=== PATIENT | female | born 1975 ===

== ENCOUNTER 2017-05-02 17:59 | Emergency (ER) | payer MEDICAID ==
[2017-05-02 18:09] VITALS: TEMP 98.5
--- NOTE | 2017-05-02 18:42 | C.PDOC ---
History Of Present Illness 42 year old female presents to the ED with complaints of an headache that she describes as "electricity on the top of my head and numbness" since 11am today. Patient states she experienced similar symptoms one week ago but "was not as intense." She also notes a chest pressure that began around 2pm today with radiating left arm cramping and dizziness. Patient used ibuprofen with relief and denies past medical history, migraines, drug use, alcohol, or smoking. Time Seen by Provider: 05/02/17 18:27 Chief Complaint (Nursing): Headache History Per: Patient History/Exam Limitations: no limitations Onset/Duration Of Symptoms: Hrs Current Symptoms Are (Timing): Better (pain was a 10/10 prior to arrival) Pain Scale Rating Of: 8 Quality: Other ("electricity and numbness" on the top of the head ) Preceeding Symptoms: None Associated Symptoms: denies: Photophobia, Blurred Vision, Nausea, Vomiting Recent travel outside of the [place]: No Past Medical History Reviewed: Historical Data, Nursing Documentation, Vital Signs Vital Signs: Last Vital Signs Temp 98.5 F 05/02/17 18:06 Pulse 80 05/02/17 19:23 Resp 14 05/02/17 19:23 BP 120/80 05/02/17 19:23 Pulse Ox 99 05/02/17 19:23 Surgical History: Cholecystectomy Family History: States: Unknown Family Hx - Social History Hx Alcohol Use: No Hx Substance Use: No - Immunization History Hx Tetanus Toxoid Vaccination: No Hx Influenza Vaccination: No Hx Pneumococcal Vaccination: No Review Of Systems Constitutional: Negative for: Fever, Chills Cardiovascular: Positive for: Other (chest pressure ). Negative for: Chest Pain , Palpitations Respiratory: Negative for: Cough, Shortness of Breath Gastrointestinal: Negative for: Nausea, Vomiting, Abdominal Pain, Diarrhea Musculoskeletal: Positive for: Arm Pain (left arm cramping sensation radiation from chest pressure ) Neurological: Positive for: Headache, Dizziness. Negative for: Weakness, Numbness Physical Exam - Physical Exam Appears: Non-toxic, No Acute Distress Skin: Warm, Dry Head: Other (reproducable scalp pain ) Eye(s): bilateral: Normal Inspection, PERRL, EOMI Oral Mucosa: Moist Neck: Paracervical Tenderness Chest: Symmetrical, No Deformity Cardiovascular: Rhythm Regular Respiratory: Normal Breath Sounds, No Rales, No Rhonchi, No Wheezing Gastrointestinal/Abdominal: Soft, No Tenderness, No Distention, No Guarding, No Rebound Extremity: Normal ROM, No Tenderness Neurological/Psych: Oriented x3, Normal Speech, Normal Cognition, Normal Cranial Nerves, Normal Motor, Normal Sensation ED Course And Treatment O2 Sat by Pulse Oximetry: 98 (room air ) Medical Decision Making Medical Decision Making: headache with scalp and cervical muscle tenderness, no cereral symptoms. NSR 62 without acute changes normal exam. Disposition Doctor Will See Patient In The: Office Counseled Patient/Family Regarding: Studies Performed, Diagnosis - Disposition [facility]Outside[facility] Disposition: HOME/ ROUTINE Disposition Time: 19:12 Condition: GOOD Additional Instructions: sigue con Ibuprofeno 600 mg cada 6 horas julio necessario Pepcid 20 mg en la noche para prevenir irritacion' del estomago debido al Ibuprofeno. Sigue en la [facility] julio necessario. Instructions: Acute Headache (ED) Print Language: BULGARIAN - Clinical Impression Clinical Impression: Headache - Scribe Statement The provider has reviewed the documentation as recorded by the Scribe Zahra Naik All medical record entries made by the Scribe were at my direction and personally dictated by me. I have reviewed the chart and agree that the record accurately reflects my personal performance of the history, physical exam, medical decision making, and the department course for this patient. I have also personally directed, reviewed, and agree with the discharge instructions and disposition.
[2017-05-02 19:24] VITALS: BP 120/80; PULSE 80; RESP 14
[2017-05-02 19:35] VITALS: O2SAT 98
--- NOTE | 2017-05-05 12:24 | CARD ---
APPROVED REPORT EKG Measurement Heart [id number] <Conclusion> Normal sinus rhythm Normal ECG
== END 2017-05-02 19:24 | disposition home or self-care (01) ==
LOC: C.ER 17:59
DX: R51 Headache (principal)

== ENCOUNTER 2018-03-15 00:29 | Emergency (ER) | payer SELFPAY ==
[2018-03-15 00:47] VITALS: RESP 20
[2018-03-15] MEDS ORDERED: Lidocaine Hydrochloride 10 ML INJ ONE (01:18)
[2018-03-15] MEDS ORDERED: Bacitracin 500 Units/gm Oint Foilpak UD ONE ×2 (02:13→03:13)
--- NOTE | 2018-03-15 02:17 | C.PDOC ---
History Of Present Illness 42 year old female presents to the emergency department status-post falling in her bathtub and sustaining a laceration to her forehead. Patient reports that she doesn't normally drink but tonight she did. She denies vomiting. Chief Complaint (Nursing): Abnormal Skin Integrity History Per: Patient History/Exam Limitations: no limitations Onset/Duration Of Symptoms: Hrs Current Symptoms Are (Timing): Still Present Location Of Injury: Anterior: Head Quality Of Symptoms: Other (laceration) Past Medical History Reviewed: Historical Data, Nursing Documentation, Vital Signs Vital Signs: Last Vital Signs Temp 98 F 03/15/18 04:00 Pulse 80 03/15/18 04:00 Resp 20 03/15/18 04:00 BP 120/72 03/15/18 04:00 Pulse Ox 100 03/15/18 04:05 - Medical History PMH: No Chronic Diseases Surgical History: Cholecystectomy Family History: States: No Known Family Hx - Social History Hx Alcohol Use: Yes Hx Substance Use: No - Immunization History Hx Tetanus Toxoid Vaccination: No Hx Influenza Vaccination: No Hx Pneumococcal Vaccination: No Review Of Systems Except As Marked, All Systems Reviewed And Found Negative. Skin: Positive for: Other (laceration to the forehead) Physical Exam - Physical Exam Appears: Non-toxic, In Acute Distress Skin: Warm, Dry Head: Normacephalic, Laceration (4cm flap-laceration to the mid forehead through to fatty layer) Eye(s): bilateral: Other (conjunctiva inject) Nose: Normal Neurological/Psych: Other (slurring speech, intoxicated) ED Course And Treatment O2 Sat by Pulse Oximetry: 100 (RA) Pulse Ox Interpretation: Normal - CT Scan/US Head Other Rad Studies (CT/US): Read By Radiologist, Radiology Report Reviewed CT/US Interpretation: PRESSION: 1. No evidence of an acute intracranial hemorrhage, midline shift or mass. effect is identified. 2. There is frontal scalp soft tissue swelling/hematoma and emphysema. extending into the frontonasal region.Nonspecific frontal scalp radiopaque. densities representing debris versus radiopaque foreign body versus. calcification. There may be small foci of hemorrhage measuring 6 mm in the. frontal scalp region seen on image 6 series 3. Laceration - Laceration Repair Forehead Wound Length (In cm): 4cm Description Of Wound: Irregular (flap laceration) Wound Closure: Suture (closed in layers with 6-0 Vicryl x3 followed by interreupted 6-0 ethylon x9) Suture Technique And Material Used: Interrupted Wound Complexity: Intermediate Disposition - Disposition Referrals: [facility] [Outside] Disposition: HOME/ ROUTINE Disposition Time: 04:30 Condition: GOOD Additional Instructions: Suture removal 1 week Instructions: Laceration Repair With Stitches (DC) Forms: [employer] (South Korean) Print Language: KISWAHILI - Clinical Impression Clinical Impression: Laceration of forehead - Scribe Statement The provider has reviewed the documentation as recorded by the Scribe (Rl Desi) Provider Attestation: All medical record entries made by the Scribe were at my direction and personally dictated by me. I have reviewed the chart and agree that the record accurately reflects my personal performance of the history, physical exam, medical decision making, and the department course for this patient. I have also personally directed, reviewed, and agree with the discharge instructions and disposition.
[2018-03-15 02:58] VITALS: BP 120/72; PULSE 80; TEMP 98
--- NOTE | 2018-03-15 03:18 | CT ---
EXAM: CT Head Without Intravenous Contrast CLINICAL HISTORY: 42 years old, female; Injury or trauma; Fall; Initial encounter; Abrasion; Forehead; Injury date: 03/15/18; Injury details: Fell in the bathroom TECHNIQUE: Axial computed tomography images of the head/brain without intravenous contrast. All CT scans at this facility use one or more dose reduction techniques, viz.: automated exposure control; ma/kV adjustment per patient size (including targeted exams where dose is matched to indication; i.e. head); or iterative reconstruction technique. 345 images are submitted. Axial images are submitted in bone and brain windows. Coronal and sagittal reformatted images were created and reviewed. Axial reformatted images were created and reviewed. COMPARISON: No relevant prior studies available. FINDINGS: Brain: Unremarkable. No hemorrhage. No significant white matter disease. No edema. Ventricles: Unremarkable. No ventriculomegaly. Bones/joints: Unremarkable. No acute fracture. Soft tissues: There is frontal scalp soft tissue swelling/hematoma and emphysema extending into the frontonasal region.Nonspecific frontal scalp radiopaque densities representing debris versus radiopaque foreign body versus calcification. There may be small foci of hemorrhage measuring 6 mm in the frontal scalp region seen on image 6 series 3. Sinuses: Unremarkable. No acute sinusitis. Mastoid air cells: Unremarkable. No mastoid effusion. Orbits: The visualized globes are intact. IMPRESSION: 1. No evidence of an acute intracranial hemorrhage, midline shift or mass effect is identified. 2. There is frontal scalp soft tissue swelling/hematoma and emphysema extending into the frontonasal region.Nonspecific frontal scalp radiopaque densities representing debris versus radiopaque foreign body versus calcification. There may be small foci of hemorrhage measuring 6 mm in the frontal scalp region seen on image 6 series 3.
[2018-03-15 03:59] VITALS: O2SAT 100
== END 2018-03-15 04:00 | disposition home or self-care (01) ==
LOC: C.ER 00:29
DX: S01.81XA Laceration without foreign body of other part of head, initial encounter (principal); W18.2XXA Fall in (into) shower or empty bathtub, initial encounter; Y93.E1 Activity, personal bathing and showering

== ENCOUNTER 2018-03-17 16:54 | Emergency (ER) | payer MEDICAID ==
[2018-03-17 17:01] VITALS: BP 114/94; PULSE 71; RESP 16; TEMP 98.3; O2SAT 98
[2018-03-17] MEDS ORDERED: Bacitracin 500 Units/gm Oint Foilpak UD TOP ONE (17:46)
--- NOTE | 2018-03-17 17:46 | C.PDOC ---
History Of Present Illness The patient is a 42 year old female who fell and hit her head 3 days ago. Patient underwent suture repair to her mid-forehead. Patient states she had applied betadine and scarring cream to the area, but noted some purulent discharge from the area. Patient denies fever, chills, or new trauma. Time Seen by Provider: 03/17/18 17:07 Chief Complaint (Nursing): Abnormal Skin Integrity History Per: Patient History/Exam Limitations: no limitations Onset/Duration Of Symptoms: Days Current Symptoms Are (Timing): Still Present Quality Of Symptoms: Draining Additional History Per: Patient Past Medical History Reviewed: Historical Data, Nursing Documentation, Vital Signs Vital Signs: Last Vital Signs Temp 98.3 F 03/17/18 16:59 Pulse 71 03/17/18 16:59 Resp 16 03/17/18 16:59 BP 114/94 H 03/17/18 16:59 Pulse Ox 98 03/17/18 22:27 - Medical History PMH: No Chronic Diseases Surgical History: Cholecystectomy Family History: States: Unknown Family Hx - Social History Hx Alcohol Use: Yes Hx Substance Use: No - Immunization History Hx Tetanus Toxoid Vaccination: No Hx Influenza Vaccination: No Hx Pneumococcal Vaccination: No Review Of Systems Constitutional: Negative for: Fever, Chills Skin: Positive for: Other (drainage from sutured wound ) Physical Exam - Physical Exam Appears: Non-toxic, No Acute Distress Skin: Normal Color, Warm, Dry, Other (sutured wound to mid-forehead. no drainage noted. No erythema or tenderness) Head: Atraumatic, Normacephalic Eye(s): bilateral: Normal Inspection Oral Mucosa: Moist Neck: Supple Chest: Symmetrical, No Deformity, No Tenderness Cardiovascular: Rhythm Regular, No Murmur Respiratory: Normal Breath Sounds, No Rales, No Rhonchi, No Wheezing Extremity: Normal ROM, Capillary Refill (less than 2 seconds ) Neurological/Psych: Oriented x3, Normal Speech, Normal Cognition Gait: Steady ED Course And Treatment O2 Sat by Pulse Oximetry: 98 (on RA) Pulse Ox Interpretation: Normal Medical Decision Making Medical Decision Making: Progress: Bacitracin TOP and Keflex PO administered. Disposition - Disposition Referrals: [facility] [Outside] Disposition: HOME/ ROUTINE Disposition Time: 17:46 Condition: STABLE Additional Instructions: Clean with soap and water twice a day. Sutures to be removed in 4 days, Return if worsened. Prescriptions: Cephalexin [Keflex] 500 mg PO TID #21 capsule Mupirocin 2% Cream [Bactroban 2%] 30 gm EXT TID #3 tube Instructions: Wound Infection Forms: [employer] (Equ[place]an) Print Language: KOSOVAN - Clinical Impression Clinical Impression: Wound infection - PA / FIELD INSTALLER / Resident Statement MD/DO has reviewed & agrees with the documentation as recorded. - Scribe Statement The provider has reviewed the documentation as recorded by the Scribe (Caro Woodward) All medical record entries made by the Scribe were at my direction and personally dictated by me. I have reviewed the chart and agree that the record accurately reflects my personal performance of the history, physical exam, medical decision making, and the department course for this patient. I have also personally directed, reviewed, and agree with the discharge instructions and disposition.
[2018-03-17] MEDS ORDERED: Bacitracin 500 Units/gm Oint Foilpak UD ONE (17:50)
== END 2018-03-17 18:00 | disposition home or self-care (01) ==
LOC: C.ER 16:54
DX: T81.4XXA Infection following a procedure, initial encounter (principal); L08.9 Local infection of the skin and subcutaneous tissue, unspecified

== ENCOUNTER 2018-03-21 14:10 | Emergency (ER) | payer MEDICAID ==
[2018-03-21 14:22] VITALS: BP 114/81; PULSE 60; RESP 18; TEMP 98.5; O2SAT 100
[2018-03-21] MEDS ORDERED: Bacitracin 500 Units/gm Oint Foilpak UD TOP ONE (14:53)
--- NOTE | 2018-03-21 14:54 | C.PDOC ---
History Of Present Illness Patient presents to ED for suture removal from forehead after laceration repair on 03/15/18. Denies any fever, drainage or other complaints. Time Seen by Provider: 03/21/18 14:40 Chief Complaint (Nursing): Suture/Staple Removal History Per: Patient History/Exam Limitations: no limitations Onset/Duration Of Symptoms: Days Ago Past Medical History Reviewed: Historical Data, Nursing Documentation, Vital Signs Vital Signs: Last Vital Signs Temp 98.5 F 03/21/18 14:20 Pulse 60 03/21/18 14:20 Resp 18 03/21/18 14:20 BP 114/81 03/21/18 14:20 Pulse Ox 100 03/21/18 14:54 - Medical History PMH: No Chronic Diseases Surgical History: Cholecystectomy Family History: States: Unknown Family Hx - Social History Hx Alcohol Use: Yes Hx Substance Use: No - Immunization History Hx Tetanus Toxoid Vaccination: No Hx Influenza Vaccination: No Hx Pneumococcal Vaccination: No Review Of Systems Except As Marked, All Systems Reviewed And Found Negative. Skin: Positive for: Other (sutures on forehead) Physical Exam - Physical Exam Appears: Non-toxic, No Acute Distress Skin: Warm, Dry Head: Normacephalic, Other (six sutures clean dry and intact to mid-forehead) Eye(s): bilateral: Normal Inspection, EOMI Neck: Normal ROM Extremity: Bilateral: Atraumatic ED Course And Treatment O2 Sat by Pulse Oximetry: 100 Medical Decision Making Medical Decision Making: Sutures removed by me without difficulty. Patient tolerated well. Bacitracin applied. Disposition Counseled Patient/Family Regarding: Diagnosis, Need For Followup - Disposition Disposition: HOME/ ROUTINE Disposition Time: 14:54 Condition: GOOD Instructions: Stitches Removal Print Language: SOLOMON ISLANDER - POA Present On Arrival: None - Clinical Impression Clinical Impression: Removal of suture
[2018-03-21] MEDS ORDERED: Bacitracin 500 Units/gm Oint Foilpak UD ONE (15:19)
== END 2018-03-21 15:14 | disposition home or self-care (01) ==
LOC: C.ER 14:10
DX: Z48.02 Encounter for removal of sutures (principal)

== ENCOUNTER 2018-04-25 11:23 | Emergency (ER) | payer MEDICAID ==
[2018-04-25 11:30] VITALS: BP 116/75; PULSE 76; RESP 16; TEMP 98; O2SAT 98
--- NOTE | 2018-04-25 12:07 | C.PDOC ---
History Of Present Illness 43 year old female presents to the ER complaining of pain to wound on forehead for 10 days. Patient sustained a forehead laceration on 03/15/18, at which time she had the laceration repaired. Two days later she was treated with antibiotics for a possible infected. Sutures were removed on 03/21/18 and she was a symptomatic until approx 10 days ago when she started feeling pain and itching to the area. Also notes that she see the suture coming out of the wound. No new trauma. She denies any fever/chills, swelling, redness, discharge to the area. Time Seen by Provider: 04/25/18 11:31 Chief Complaint (Nursing): Abnormal Skin Integrity History Per: Patient, Rn Mental Health History/Exam Limitations: no limitations Onset/Duration Of Symptoms: Days Current Symptoms Are (Timing): Still Present Location Of Injury: Anterior: Face (Pain to wound on forehead ) Quality Of Symptoms: Painful. denies: Swollen, Draining Past Medical History Reviewed: Historical Data, Nursing Documentation, Vital Signs Vital Signs: Last Vital Signs Temp 98 F 04/25/18 11:28 Pulse 76 04/25/18 11:28 Resp 16 04/25/18 11:28 BP 116/75 04/25/18 11:28 Pulse Ox 98 04/25/18 14:50 - Medical History PMH: No Chronic Diseases Surgical History: Cholecystectomy Family History: States: No Known Family Hx - Social History Hx Alcohol Use: Yes Hx Substance Use: No - Immunization History Hx Tetanus Toxoid Vaccination: No Hx Influenza Vaccination: No Hx Pneumococcal Vaccination: No Review Of Systems Except As Marked, All Systems Reviewed And Found Negative. Constitutional: Negative for: Fever, Chills Musculoskeletal: Positive for: Other (Pain to wound on forehead ) Physical Exam - Physical Exam Appears: Non-toxic, No Acute Distress Skin: Normal Color, Other (2 (?) vycrl sutures protruding through closed healed laceration to the mid forehead (+) tender and mildly indurated. No warmth, erythema , or fluctuance ) Head: Normacephalic Eye(s): bilateral: Normal Inspection, PERRL, EOMI Nose: Normal Oral Mucosa: Moist Neck: Normal ROM, Supple Chest: Symmetrical Respiratory: No Accessory Muscle Use, Other (Speaking full sentences ) Extremity: Normal ROM Neurological/Psych: Oriented x3, Normal Speech, Normal Sensation ED Course And Treatment O2 Sat by Pulse Oximetry: 98 (RA) Pulse Ox Interpretation: Normal Progress Note: Patient examined and assessed. The sutures protruding through the laceration noted and cut to skin line. One nylon suture that was left was removed. No discharge, no warmth, no erythema, No signs of infection. Discussed with pt, no signs of infection. Instructed to follow up with plastic surgeon in 1-2 days, fill abx if signs of infection arise. Case discussed with Dr Allen, agreed upon plan and discharge. Disposition - Disposition Referrals: Cathy Vasques MD [Staff Provider] - Disposition: HOME/ ROUTINE Disposition Time: 12:04 Condition: STABLE Additional Instructions: If area becomes swollen, red, and has discharge fill the antibiotics. Follow up with plastic surgeon for re-evaluation in 1-2 days. Si el su se hincha, se enrojece y tiene secrecin, rellene los antibiticos. Richard un seguimiento con un cirujano plstico para kal nueva evaluacin en 1-2 d as. Prescriptions: Cephalexin [cephalexin] 500 mg PO BID 7 Days cap Instructions: Wound Care (DC) Forms: [employer] (Iraqi) Print Language: HUNGARIAN - Clinical Impression Clinical Impression: Visit for wound check - PA / HYDROGRAPHIC ENGINEER / Resident Statement MD/DO has reviewed & agrees with the documentation as recorded. - Scribe Statement The provider has reviewed the documentation as recorded by the Scribe Blank Muñoz All medical record entries made by the Scribe were at my direction and personally dictated by me. I have reviewed the chart and agree that the record accurately reflects my personal performance of the history, physical exam, medical decision making, and the department course for this patient. I have also personally directed, reviewed, and agree with the discharge instructions and disposition.
== END 2018-04-25 12:27 | disposition home or self-care (01) ==
LOC: C.ER 11:23
DX: S01.81XD Laceration without foreign body of other part of head, subsequent encounter (principal)